=== PATIENT | female | born 2000 | race Caucasian/White ===

== ENCOUNTER 2022-04-20 23:26 | Emergency (ER) | payer SELFPAY ==
[~2022-04-20] VITALS: Ht 160 cm; Wt 59.1 kg
[2022-04-20 23:29] VITALS: TEMP 97
[2022-04-21 00:07] VITALS: BP 120/78; PULSE 70
== END 2022-04-21 00:06 | disposition home or self-care (01) ==
LOC: COL.ER 23:26
DX: S00.03XA Contusion of scalp, initial encounter (principal); Z28.310 Unvaccinated for COVID-19; W22.8XXA Striking against or struck by other objects, initial encounter